=== PATIENT | female | born 1960 | race Two or more races ===

== ENCOUNTER 2018-04-16 13:03 | Emergency (ER) | payer OTHER ==
[~2018-04-16] VITALS: Ht 162.6 cm; Wt 68.0 kg
[~2018-04-16 13:03] MED LIST: ATROVENT 00.5 MG/2.5 IH; LANOXIN EL0.05 MG/ML; LANOXIN125 MCG PO; VASOTEC2.5 MG; XARELTO1 EACH; XOPENEX0.63 MG/3 IH
[2018-04-16] MEDS ORDERED: PEPCID20 MG (14:07)
[2018-04-16] MEDS ORDERED: [UNRECOGNIZED DRUG - OTHER] (14:07)
== END 2018-04-16 21:34 | disposition home or self-care (01) ==
LOC: ER 13:03
DX: N20.0 Calculus of kidney (principal)